=== PATIENT | male | born 1980 | race Caucasian/White ===

== ENCOUNTER 2016-10-02 11:28 | Emergency (ER) | payer SELFPAY ==
[~2016-10-02 11:28] MED LIST: IBUP-238 PO; LORT5TAB PO; PENI500T PO
--- NOTE | 2016-10-02 11:53 | PD ---
HPI . left knee pain Chief Complaint: Injury Time Seen by Provider: 11:49 Travel History International Travel<30 days: No Contact w/Intl Traveler<30days: No Traveled to known affect area: No History of Present Illness HPI 36-year-old male with no significant past medical history here with complaints of left knee pain. Patient tells me that this morning he was [place] when he decided to jump [place] a [place] and accidentally fell hitting his left knee on a hard pile of dirt. Patient tells me that he was unable to walk and called his friends for assistance. He reports severe pain in the left knee 11/27. He tells me he is able to move it, but it causes increased pain. He denies radiation of pain elsewhere. He denies any head injury or loss of consciousness. PFSH Past Medical History Diminished Hearing: No Musculoskeletal: Yes (LEFT ANKLE WITH TORN LIGAMENT PER PT, CHRONIC BACK PAIN) Past Surgical History Oral Surgery: Yes (ROOT CANAL, wisdom teeth) Other Surgery: Yes (WISDOM TEETH) Social History Alcohol Use: No Tobacco Use: No Substance Use: No Allergies-Medications (Allergen,Severity, Reaction): Coded Allergies: Honey Bee (Verified Allergy, Severe, THROAT SWELLING, 10/02/16) Ultram (Verified Adverse Reaction, Severe, VOMIT/COLD SWEATS, 10/02/16) Reported Meds & Prescriptions Reported Meds & Active Scripts Active No Active Prescriptions or Reported Medications Review of Systems General / Constitutional: No: Fever Eyes: No: Visual changes HENT: No: Headaches Cardiovascular: No: Chest Pain or Discomfort Respiratory: No: Shortness of Breath Gastrointestinal: No: Abdominal Pain Genitourinary: No: Dysuria Musculoskeletal: Positive: Pain (left knee pain) Skin: No Rash Neurologic: No: Weakness Psychiatric: No: Depression Endocrine: No: Polydipsia Hematologic/Lymphatic: No: Easy Bruising Physical Exam Narrative GENERAL: AAO x 3, no acute distress, Well-nourished, well-developed patient. SKIN: Warm and dry. No visible rashes or bruising. HEAD: Normocephalic and atraumatic. EYES: No scleral icterus. No injection or drainage. EOM intact, PERRLA ENT: No nasal drainage noted. Mucous membranes pink. Airway patent. NECK: Supple, trachea midline. No JVD. CARDIOVASCULAR: Regular rate and rhythm without murmurs, gallops, or rubs. RESPIRATORY: Breath sounds equal bilaterally. No accessory muscle use. No rhonchi or rales. GASTROINTESTINAL: Abdomen soft, non-tender, nondistended. EXTREMITIES: No cyanosis; Left knee + effusion seen, patella intact, + lateral knee tenderness, able to minimally flex and extend due to increased pain. pulses intact, BACK: Nontender without obvious deformity. No CVA tenderness. NEURO: CN II-12 intact, junior automation engineer strength normal b/l, UE and LE 5/5, no focal deficits PSYCH: AAO x 3, normal affect. Data Data Last Documented VS Vital Signs Date Time Temp Pulse Resp B/P Pulse Ox O2 Delivery O2 Flow Rate FiO2 10/02/16 11:54 17 99 Room Air Orders Ketorolac Inj (Toradol Inj) (10/02/16 12:00) Knee, Complete (4vws) (10/02/16 11:53) ^ Erlin Bandage (10/02/16 13:08) Crutches (10/02/16 13:08) MDM Medical Decision Making Medical Screen Exam Complete: Yes Emergency Medical Condition: Yes Medical Record Reviewed: Yes Differential Diagnosis left knee pain, fall, joint effusion, less likely knee fracture, ligamentous injury of the knee Narrative Course 36-year-old male here today with complaints of left knee pain status post fall. Toradol given for pain. Xray obtained. X-ray is negative for any acute bony abnormality. There is a joint effusion. I have discussed this with him at length. I will provide him with the Erlin wrap and crutches. If his pain continues past 7-10 days, he will need to see an orthopedist. I also recommend follow-up with his primary care provider. I explained that this could be an internal issue affecting ligaments or meniscus. Thus, I recommend f/u with ortho if sxs do not improve. In the meantime I'll provide him with some anti-inflammatories. He needs to practices RICE. Last Impressions Knee X-Ray 10/02/16 1153 Signed Impressions: Service Date/Time: , October 02, 2016 12:13 - CONCLUSION: 1. Joint effusion. No acute fracture identified. Bonifacio Ventura MD Patient verbalized understanding of instructions, questions were answered, and thanked me for their care. I advised them if their condition worsens, please return to the nearest emergency room for further care. Diagnosis Primary Impression: Knee pain, acute Qualified Code: M25.562 - Acute pain of left knee Referrals: Orthopedist Patient Instructions: General Instructions Additional Instructions: Rest the affected area as much as possible. Ice this area for 15-20 minutes at a time. You can do this every hour or as much as tolerated. Keep this area compressed (erlin bandage) as tolerated. Elevate this area. Use ibuprofen as needed for pain and inflammation. Please return to emergency department if your symptoms return or worsen. Follow up with your primary care provider. Take medications as prescribed. You will need to see orthopedics if your pain continues past 7-10 days. Med/Other Pt SpecificInfo: Prescription(s) given Scripts Ibuprofen 800 Mg [id number] Mg PO TID #21 TAB Prov:Leola Lincoln MD 10/02/16 Disposition: 01 DISCHARGE HOME Condition: Stable Digna Hebert Oct 02, 2016 11:53
[2016-10-02] MEDS ORDERED: KETOROLAC TROMETHAMINE 60 MG/2 ML (IM) VIAL IM ONE (12:00)
--- NOTE | 2016-10-02 12:53 | RADRPT ---
EXAM DATE/TIME: 10/02/2016 12:13 [facility] COMPARISON: No previous studies available for comparison. INDICATIONS : Left knee pain from falling and twisting knee. MEDICAL HISTORY : None. SURGICAL HISTORY : None. ENCOUNTER: Initial ACUITY: 1 day PAIN SCORE: 9/10 LOCATION: Left Knee FINDINGS: The examination demonstrates a moderate-sized joint effusion in the suprapatellar bursa. The visualiz ed bony structures are intact. CONCLUSION: 1. Joint effusion. No acute fracture identified. Bonifacio Ventura MD on October 02, 2016 at 12:50 Board Certified Radiologist. This report was verified electronically.
[2016-10-02 13:04] VITALS: RESP 18
[2016-10-02] MEDS ORDERED: IBUP800T23 PO (13:08)
[2016-10-02 13:19] VITALS: BP 118/82; TEMP 98
== END 2016-10-02 13:22 | disposition home or self-care (01) ==
LOC: NEPD 11:28
DX: M25.562 Pain in left knee (principal); M25.462 Effusion, left knee; Z87.39 Personal history of other diseases of the musculoskeletal system and connective tissue; W18.39XA Other fall on same level, initial encounter; Y93.01 Activity, walking, marching and hiking; Y92.828 Other wilderness area as the place of occurrence of the external cause
CPT/HCPCS: 73564; 96372; 99284; E0113; J1885

== ENCOUNTER 2016-10-09 15:37 | Emergency (ER) | payer SELFPAY ==
[~2016-10-09] VITALS: Ht 182.9 cm; Wt 72.3 kg
[~2016-10-09 15:37] MED LIST changes: -IBUP-238 PO; +IBUP800T23 PO; -LORT5TAB PO; -PENI500T PO
[2016-10-09 15:44] VITALS: BP 130/88; PULSE 112; RESP 20; TEMP 98.2; O2SAT 98
[2016-10-09] MEDS ORDERED: IBUP800T23 PO (16:19)
--- NOTE | 2016-10-09 16:19 | PD ---
HPI Chief Complaint: Musculoskeletal Complaint Time Seen by Provider: 16:05 Travel History International Travel<30 days: No Contact w/Intl Traveler<30days: No Traveled to known affect area: No History of Present Illness HPI 36-year-old male presents emergency department for reevaluation of left knee pain. He was seen last week status post twisting injury had negative x-ray. Patient reports since that time the swelling in his left knee has reduced greatly. He has follow-up with orthopedic next week. Presents emergency department today as he has continued pain. He does not endorse worsening of symptoms. He reports that the swelling has gone down. He reports the pain as constant located within the left knee, worse with weightbearing and flexion, relieved with rest, severity 6 out of 10. He has no other medical complaints. He denies numbness, tingling, weakness in the extremity. PFSH Past Medical History Medical History: Denies Significant Hx Diminished Hearing: No Musculoskeletal: Yes (LEFT ANKLE WITH TORN LIGAMENT PER PT, CHRONIC BACK PAIN) Past Surgical History Oral Surgery: Yes (ROOT CANAL, wisdom teeth) Other Surgery: Yes (WISDOM TEETH) Social History Alcohol Use: No Tobacco Use: No Substance Use: No Allergies-Medications (Allergen,Severity, Reaction): Coded Allergies: Honey Bee (Verified Allergy, Severe, THROAT SWELLING, 10/02/16) Ultram (Verified Adverse Reaction, Severe, VOMIT/COLD SWEATS, 10/02/16) Reported Meds & Prescriptions Reported Meds & Active Scripts Active Ibuprofen 800 Mg Tab 800 Mg PO TID Review of Systems Except as stated in HPI: all other systems reviewed are Neg Physical Exam Narrative GENERAL: Well-nourished, well-developed patient. SKIN: Focused skin assessment warm/dry. HEAD: Normocephalic. EYES: No scleral icterus. No injection or drainage. NECK: Supple, trachea midline. No JVD or lymphadenopathy. CARDIOVASCULAR: Regular rate and rhythm without murmurs, gallops, or rubs. RESPIRATORY: Breath sounds equal bilaterally. No accessory muscle use. GASTROINTESTINAL: Abdomen soft, non-tender, nondistended. MUSCULOSKELETAL: No cyanosis, or edema. Left knee: Moderate size effusion. Joint is stable. No warmth or erythema of the joint. The extremity is neurovascular intact. 2+ distal pulses. No deformity. Brisk cap refill. BACK: Nontender without obvious deformity. No CVA tenderness. Data Data Last Documented VS Vital Signs Date Time Temp Pulse Resp B/P Pulse Ox O2 Delivery O2 Flow Rate FiO2 10/09/16 15:44 98.2 112 20 130/88 98 MDM Medical Decision Making Medical Screen Exam Complete: Yes Emergency Medical Condition: Yes Differential Diagnosis Joint effusion, internal drainage into the knee, knee sprain Narrative Course 36 [place] male presents emergency department for evaluation of left knee pain status post twisting injury last week. Patient has had negative x-ray. He reports the swelling has reduced by about half. He reports he's had continued pain therefore came into the emergency department for evaluation. On exam the patient does have a moderate size joint effusion he reports that this was " twice as big" last week. Patient has arranged follow-up with orthopedic doctor next week. Patient was instructed to continue using Erlin wrap, crutches, NSAIDs. He agrees to treatment plan. Diagnosis Primary Impression: Knee pain Qualified Code: M25.562 - Acute pain of left knee Referrals: Orthopedist Scripts Ibuprofen 800 Mg Obi165 Mg PO Q8H PRN (Pain/Inflammation) #30 TAB Prov:Roseanna Travis 10/09/16 Disposition: 01 DISCHARGE HOME Condition: Stable Roseanna Travis Oct 09, 2016 16:19
== END 2016-10-09 16:30 | disposition home or self-care (01) ==
LOC: PHEFT 15:37
DX: M25.562 Pain in left knee (principal); X50.1XXA Overexertion from prolonged static or awkward postures, initial encounter; X50.9XXA Other and unspecified overexertion or strenuous movements or postures, initial encounter; Y93.9 Activity, unspecified; Y92.9 Unspecified place or not applicable
CPT/HCPCS: 99283

== ENCOUNTER 2017-10-04 09:51 | Emergency (ER) | payer SELFPAY ==
[~2017-10-04] VITALS: Ht 182.9 cm; Wt 66.4 kg
[2017-10-04 09:55] VITALS: BP 157/100; PULSE 88; RESP 18; TEMP 99; O2SAT 97
[2017-10-04] MEDS ORDERED: IBUP1TAB7 PO (10:47)
[2017-10-04] MEDS ORDERED: PENI500T PO (10:47)
--- NOTE | 2017-10-04 10:47 | PD ---
HPI Chief Complaint: Oral / Dental Pain or Problem Time Seen by Provider: 10:35 Travel History International Travel<30 days: No Contact w/Intl Traveler<30days: No Traveled to known affect area: No History of Present Illness HPI 37-year-old male here with left lower dental pain 3 days. No fever or chills. Symptom severity is moderate. Aggravated by hot/cold liquids and chewing. PFSH Past Medical History Medical History: Denies Significant Hx Diminished Hearing: No Musculoskeletal: Yes (LEFT ANKLE WITH TORN LIGAMENT PER PT, CHRONIC BACK PAIN) Influenza Vaccination: No Past Surgical History Oral Surgery: Yes (ROOT CANAL, wisdom teeth) Other Surgery: Yes (WISDOM TEETH) Social History Alcohol Use: No Tobacco Use: No Substance Use: No Allergies-Medications (Allergen,Severity, Reaction): Coded Allergies: bee venom protein (honey bee) (Unverified Allergy, Severe, THROAT SWELLING , 10/04/17) tramadol (Unverified Adverse Reaction, Severe, VOMIT/COLD SWEATS, 10/04/17) Reported Meds & Prescriptions Reported Meds & Active Scripts Active No Active Prescriptions or Reported Medications Review of Systems Except as stated in HPI: all other systems reviewed are Neg General / Constitutional: No: Fever Eyes: No: Visual changes HENT: Positive: Dental Difficulties Cardiovascular: No: Chest Pain or Discomfort Respiratory: No: Shortness of Breath Gastrointestinal: No: Abdominal Pain Genitourinary: No: Dysuria Physical Exam Narrative GENERAL: Alert and well-appearing 37-year-old male SKIN: Warm and dry. HEAD: Normocephalic. EYES: No injection or drainage. MOUTH: Widespread dental decay. Decayed and fractured tooth #19 with surrounding gum erythema. No swelling to the floor the mouth. Uvula is midline. Airways patent. NECK: Supple, trachea midline. No JVD or lymphadenopathy. CARDIOVASCULAR: Regular rate and rhythm RESPIRATORY: Breath sounds equal bilaterally. No accessory muscle use. GASTROINTESTINAL: Abdomen soft, non-tender, nondistended. Data Data Last Documented VS Vital Signs Date Time Temp Pulse Resp B/P (MAP) Pulse Ox O2 Delivery O2 Flow Rate FiO2 10/04/17 09:55 99.0 88 18 157/100 (119) 97 MDM Medical Decision Making Medical Screen Exam Complete: Yes Emergency Medical Condition: Yes Differential Diagnosis Dental abscess, dental caries, periodontal disease Narrative Course 37-year-old male here with widespread dental decay and dental infection to tooth #19. He is nontoxic appearing. He will be treated with penicillin and instructed to follow-up with his dentist. Diagnosis Primary Impression: Dental infection Referrals: Dentist Additional Instructions: Antibiotics as directed. Follow-up with your dentist. Scripts Ibuprofen (Ibuprofen) 800 Mg Tab 800 MG PO Q6HR Y for PAIN, #40 TAB 0 Refills Prov: Roseanna Travis 10/04/17 Penicillin V Potassium (Penicillin V Potassium) 500 Mg Tab 500 MG PO Q6H for Infection for 7 Days, #28 TAB 0 Refills Prov: Roseanna Travis 10/04/17 Disposition: 01 DISCHARGE HOME Condition: Stable Roseanna Travis Oct 04, 2017 10:47
== END 2017-10-04 10:55 | disposition home or self-care (01) ==
LOC: PHEFT 09:51
DX: K04.7 Periapical abscess without sinus (principal)
CPT/HCPCS: 99283